=== PATIENT | female | born 1985 | race Caucasian/White ===

== ENCOUNTER 2017-03-16 15:07 | Emergency (ER) | payer OTHER | END 2017-03-16 17:32 | disposition home or self-care (01) | LOC: ER1 15:07 | DX: S00.33XA Contusion of nose, initial encounter (principal); S50.12XA Contusion of left forearm, initial encounter; V43.52XA Car driver injured in collision with other type car in traffic accident, initial encounter; Y93.89 Activity, other specified; Y92.410 Unspecified street and highway as the place of occurrence of the external cause | CPT/HCPCS: 70486; 71020; 73090; 81001; 84703; 99284 ==

== ENCOUNTER → 2021-12-24 | Outpatient (CLI) | payer OTHER | LOC: EMI 08:31 | DX: R51.9 Headache, unspecified (principal); G89.29 Other chronic pain | CPT/HCPCS: 70551 ==